=== PATIENT | male | born 1965 ===

== ENCOUNTER 2019-05-10 08:07 | Outpatient (CLI) | payer OTHER ==
[~2019-05-10] VITALS: Ht 167.6 cm; Wt 83.9 kg
[2019-05-10] MEDS ORDERED: ZANTAC300 MG PO (09:27)
[2019-05-10] MEDS ORDERED: ZYRTEC10 MG PO (09:27)
[2019-05-10] MEDS ORDERED: FLONASE16 GM NASAL (09:27)
== END 2019-05-10 08:25 | disposition home or self-care (01) ==
LOC: OFIC 805 08:07
DX: E04.1 Nontoxic single thyroid nodule (principal); R22.1 Localized swelling, mass and lump, neck; J31.0 Chronic rhinitis; J34.2 Deviated nasal septum; J34.3 Hypertrophy of nasal turbinates; R49.8 Other voice and resonance disorders; J37.0 Chronic laryngitis

== ENCOUNTER 2019-09-27 07:13 | Outpatient (CLI) | payer OTHER ==
[~2019-09-27] VITALS: Ht 152.4 cm; Wt 81.6 kg
[~2019-09-27 07:13] MED LIST: FLONASE16 GM NASAL; ZANTAC300 MG PO; ZYRTEC10 MG PO
== END 2019-09-27 08:15 | disposition home or self-care (01) ==
LOC: OFIC 805 07:13
DX: E04.1 Nontoxic single thyroid nodule (principal); R22.1 Localized swelling, mass and lump, neck; J31.0 Chronic rhinitis; J34.2 Deviated nasal septum; J37.0 Chronic laryngitis

== ENCOUNTER 2020-04-29 09:21 | Outpatient (CLI) | payer OTHER ==
[~2020-04-29] VITALS: Ht 167.6 cm; Wt 81.6 kg
== END 2020-04-29 15:48 | disposition home or self-care (01) ==
LOC: OFIC 805 09:21
PROVIDERS: ATTEND Otolaryngology
DX: E04.1 Nontoxic single thyroid nodule (principal); R22.1 Localized swelling, mass and lump, neck; J37.0 Chronic laryngitis; R13.19 Other dysphagia

== ENCOUNTER 2020-05-13 09:25 | Outpatient (CLI) | payer OTHER | END 2020-05-13 14:31 | disposition home or self-care (01) | LOC: OFIC 805 09:25 | PROVIDERS: ATTEND Otolaryngology | DX: R13.10 Dysphagia, unspecified (principal); J37.0 Chronic laryngitis; R49.1 Aphonia; J38.7 Other diseases of larynx ==

== ENCOUNTER 2020-06-18 12:21 | Outpatient (CLI) | payer OTHER | END 2020-06-18 18:25 | disposition home or self-care (01) | LOC: OFIC 805 12:21 | PROVIDERS: ATTEND Otolaryngology | DX: R47.02 Dysphasia (principal); J37.0 Chronic laryngitis; E04.1 Nontoxic single thyroid nodule; J38.2 Nodules of vocal cords ==

== ENCOUNTER → 2020-07-09 | Outpatient (CLI) | payer OTHER | END | disposition home or self-care (01) | LOC: OFIC 805 08:30 | PROVIDERS: ATTEND Otolaryngology | DX: E04.1 Nontoxic single thyroid nodule (principal); J38.2 Nodules of vocal cords ==

== ENCOUNTER 2020-08-06 14:51 | Outpatient (CLI) | payer OTHER | END 2020-08-06 16:34 | disposition home or self-care (01) | LOC: OFIC 805 14:51 | PROVIDERS: ATTEND Otolaryngology | DX: C73 Malignant neoplasm of thyroid gland (principal); E04.1 Nontoxic single thyroid nodule; R49.0 Dysphonia ==